=== PATIENT | female | born 1980 | race African-American/Black ===

== ENCOUNTER 2024-02-08 07:39 | Emergency (ER) | payer MEDICAID, OTHER ==
[~2024-02-08] VITALS: Ht 162.6 cm; Wt 64.0 kg
[2024-02-08 07:53] VITALS: BP 125/89; PULSE 76; RESP 12; TEMP 98.4; O2SAT 100
[2024-02-08] MEDS ORDERED: AMOX1TAB16 MT (11:05)
== END 2024-02-08 13:02 | disposition home or self-care (01) ==
LOC: ER 07:39
DX: H61.22 Impacted cerumen, left ear (principal); Z98.890 Other specified postprocedural states
CPT/HCPCS: 81025; 99283

== ENCOUNTER 2024-09-22 19:03 | Emergency (ER) | payer OTHER ==
[~2024-09-22] VITALS: Ht 162.6 cm; Wt 65.1 kg
[~2024-09-22 19:03] MED LIST: AMOX1TAB16 MT
[2024-09-22 19:21] VITALS: O2SAT 98
[2024-09-22 20:16] LABS: CLARITY URINE CLEAR (CLEAR); COLOR URINE YELLOW (YELLOW); GLUCOSE URINE NEGATIVE (NEGATIVE); KETONES URINE NEGATIVE (NEGATIVE); LEUKOCYTE ESTERASE URINE NEGATIVE (NEGATIVE); NITRITE URINE NEGATIVE (NEGATIVE); OCCULT BLOOD URINE NEGATIVE (NEGATIVE); PH URINE 5.5 (4.5-8.0); PROTEIN URINE NEGATIVE (NEGATIVE); SPECIFIC GRAVITY URINE 1.028 (1.005-1.030); UROBILINOGEN URINE 0.2 E.U./dL (0.2-1.0)
[2024-09-22 20:58] LABS: BASOPHILS % 0.8 % (0.0-2.0); EOSINOPHILS % 1.4 % (0.0-5.0); HEMATOCRIT. 35.4 % (36.0-48.0); LYMPHOCYTES % 43.9 % (20.0-50.0); MEAN CORPUSCULAR HEMOGLOBIN 32.6 pg (28.0-32.0); MEAN CORPUSCULAR VOLUME 95.9 fL (81.0-99.0); MEAN PLATELET VOLUME 7.5 fl (7.4-10.4); MONOCYTES % 6.3 % (2.0-8.0); NEUTROPHILS % 47.6 % (40.0-76.0); PLATELET 281 x1000/uL (130-400); RED BLOOD CELL COUNT 3.69 mill/uL (4.2-5.4); RED CELL DISTRIBUTION WIDTH 13.5 % (11.6-14.6); WHITE BLOOD COUNT 7.9 x1000/uL (4.5-11.0)
[2024-09-22 21:12] LABS: CHLORIDE 109 mEq/L (98-107); SODIUM 139 mEq/L (136-145)
[2024-09-22 21:13] LABS: CALCIUM 10.7 mg/dL (8.7-10.4); CARBON DIOXIDE 28 mEq/L (21-32)
[2024-09-22 21:18] LABS: GLUCOSE 99 mg/dL (70-105); UREA NITROGEN BLOOD 10 mg/dL (9-23)
[2024-09-22 21:20] LABS: ALANINE AMINOTRANSFERASE 17 IU/L (10-49); ALBUMIN 4.3 g/dL (3.2-4.8); ASPARTATE AMINOTRANSFERASE 25 IU/L (<34); BILIRUBIN TOTAL 0.4 mg/dL (0.1-1.0); PROTEIN TOTAL 6.7 g/dL (6.0-8.3)
[2024-09-22 21:22] LABS: BILIRUBIN DIRECT < 0.1 mg/dL (<=3.0)
[2024-09-22] MEDS: KETOROLAC 30MG/ML VIAL IM ONE (21:45)
[2024-09-22] MEDS ORDERED: NAPR-1176 MT (22:04)
[2024-09-22] MEDS ORDERED: CYCL10TA21 MT (22:04)
[2024-09-22 22:20] VITALS: BP 120/68; PULSE 75; RESP 16; TEMP 36.39180; O2SAT 100
== END 2024-09-22 22:25 | disposition home or self-care (01) ==
LOC: ER 19:23
DX: R10.11 Right upper quadrant pain (principal); Z98.890 Other specified postprocedural states
CPT/HCPCS: 80076; 80048; 81003; 81025; 83690; 85025; 36415; 76705; 96372; 99285; J1885; Z7610